=== PATIENT | female | born 1955 | race Caucasian/White ===

== ENCOUNTER → 2021-12-28 | Day surgery (SDC) | payer OTHER, BC ==
[~2021-12-28] MED LIST: FENTANYL CITR 100 MCG/2 ML ONE; FLUMAZENIL 0.1 MG/ML (5 mL VIAL) IV ONE; MIDAZOLAM HCL 2 MG/2 ML INJ ONE; NA CHLORIDE 0.9% 500 ML ONE; NALOXONE 0.4 MG/ML VIAL ONE
[2021-12-28 08:23] LABS: Absolute Lymphocytes (CBC) 1.8 K/uL (0.7-4.9); Hematocrit 33.6 % (36.0-45.0); Lymphocytes % 34.2 % (15.3-44.8); MPV 8.1 fL (7.6-11.3); RBC Red Blood Cell Count 3.51 M/uL (3.86-4.86)
[2021-12-28 08:46] VITALS: TEMP 97.9; BMI 27.4
[2021-12-28 10:34] VITALS: O2SAT 97
[2021-12-28 11:38] VITALS: BP 120/62
[2021-12-28 11:56] LABS: Cytogenetics, Bone Marrow SENT
--- NOTE | 2021-12-28 12:26 | RAD REPORT ---
EXAM DESCRIPTION: CT - Bone Biopsy Deep - 12/28/2021 10:06 am CLINICAL HISTORY: BONE MARROW BX COMPARISON: No comparisons FINDINGS: Preoperative diagnosis: Abnormal antibody test Post operative diagnosis: Same Conscious Sedation: 3 milligram Versed, 100 mcg Fentanyl. 30 minutes of face to face time. Patient was continuously monitored by nursing staff. Contrast used: NONE Estimated blood loss: less than 5 mL Specimens: Bone marrow aspirate and core biopsy. The patient was placed prone on the table and the area was prepped and draped in the usual sterile f ashion. 1% lidocaine was infiltrated into the subcutaneous tissues for local anesthesia. Under CT flu oroscopic guidance, a 13 gauge bone biopsy needle was advanced into the right iliac bone. A core samp le and aspirate was obtained. Postprocedure imaging demonstrated no complications. Samples were given to pathology for analysis. Th e patient tolerated the procedure without immediate complication and transferred to the recovery room in stable condition. IMPRESSION: Technically successful CT-guided bone marrow aspiration and core biopsy. Conscious sedation was utilized. All CT scans are performed using dose optimization technique as appropriate and may include automated exposure control or mA/KV adjustment according to patient size.
== END ==
LOC: DS 07:25
PROVIDERS: ATTEND Internal Medicine Medical Oncology
DX: D59.12 Cold autoimmune hemolytic anemia (principal)
CPT/HCPCS: 85025; 36415; 88313 ×2; 85610; 85044; 88305; 88311; 85730; 20225; J2310; J2250; J3010; J7040